=== PATIENT | male | born 1945 | race Caucasian/White ===

== ENCOUNTER 2022-04-10 16:11 | Outpatient (CLI) | payer MEDICARE | END 2022-04-10 16:12 | disposition home or self-care (01) | LOC: BICULT 16:11 | PROVIDERS: ATTEND Family Medicine | DX: N20.0 Calculus of kidney (principal) | CPT/HCPCS: 76770 ==

== ENCOUNTER 2022-07-15 09:56 | Outpatient (CLI) | payer MEDICARE ==
[2022-07-15 11:03] LABS: Bilirubin Neg (Negative); Blood, Urine 50 (Negative); Clarity Cloudy (Clear); Glucose, Urine (Dipstick) Normal (Negative); Ketone, Urine Negative (Negative); Leukocyte 100 (Negative); Nitrite Negative (Negative); Protein, Urine (Dipstick) 15 mg/dl (Neg-Trace); Urobilinogen Normal mg/dL (Less than 2)
[2022-07-15 11:07] LABS: Hemoglobin 14.3 g/dL (13.5-17.5); Mean Corpuscular HGB CONC 33.6 g/dL (32.0-36.0); Mean Corpuscular Hemoglobin 29.7 pg (27.0-33.0); Mean Corpuscular Volume 88.6 fl (81.2-95.1); Mean Platelet Volume 10.9 fl (7.4-10.4); Platelet Count 183 10x3/uL (150-450); RBC Distribution Width 14.6 % (11.5-14.5); Red Blood Cell (RBC) Count 4.81 10x6/uL (4.32-5.72); White Blood Cell (WBC) Count 7.2 10x3/uL (3.5-10.5)
[2022-07-15 11:29] LABS: Squamous Epithelial 0-3 HPF (0-3); WBC/HPF 21-50 HPF (0-3)
[2022-07-15 11:30] LABS: Bacteria/HPF 3+ HPF (None Seen)
[2022-07-15 11:31] LABS: Anion Gap 14 mmol/L (10-20); BUN (Urea Nitrogen) 24 mg/dL (8.4-25.7); Calc. Creatinine Clearance 0 mL/min (70-130); Calcium 11.2 mg/dL (7.8-10.44); Carbon Dioxide 27 mmol/L (23-31); Chloride 99 mmol/L (98-107); Estimated GFR 72; Glucose 150 mg/dL (83-110); Potassium 3.8 mmol/L (3.5-5.1); Sodium 136 mmol/L (136-145)
[2022-07-15 11:43] LABS: PTT 26.2 sec (22.0-33.0); Prothrombin Time 10.4 sec (9.5-12.1)
== END 2022-07-15 09:57 | disposition home or self-care (01) ==
LOC: LABBT 09:56
PROVIDERS: ATTEND Urology
DX: Z01.818 Encounter for other preprocedural examination (principal)
CPT/HCPCS: 80048; 81001; 85027; 85610; 85730; 87077; 87086; 93005; 93010

== ENCOUNTER 2022-07-28 05:54 | Observation (INO) | payer MEDICARE ==
[2022-07-24 09:40] VITALS: BMI 37.5
[2022-07-28] MEDS ORDERED: fentaNYL PF 100 MCG/2 ML SYRINGE ONE (07:02)
[2022-07-28] MEDS ORDERED: Iopamidol 30 ML ONE (07:08)
[2022-07-28] MEDS ORDERED: Levofloxacin 500 mg/D5W 100 ml Premix Bag ONE (07:16)
[2022-07-28] MEDS ORDERED: cefTRIAXone\\ROCEPHIN 2 GM VIAL ONE (07:29)
[2022-07-28] MEDS ORDERED: Sodium Chloride 0.9% 100 ML ONE (07:29)
[2022-07-28 07:33] LABS: SARS-CoV-2 NAA Rapid Test Not Detected (NotDetected)
[2022-07-28] MEDS ORDERED: PROPOFOL 200 MG/20 ML VIAL ONE (07:35)
[2022-07-28] MEDS ORDERED: Esmolol 100 MG/10 ML VIAL ONE (07:35)
[2022-07-28] MEDS ORDERED: ePHEDrine 50 MG/ML VIAL ONE (07:35)
[2022-07-28] MEDS ORDERED: Rocuronium Bromide 10 MG/ML (10ML VIAL) ONE (07:35)
[2022-07-28] MEDS ORDERED: Lidocaine 1% PF 5 ML VIAL ONE (07:35)
[2022-07-28] MEDS ORDERED: SUGAMMADEX SODIUM 200 MG/2 ML VIAL ONE (08:54)
[2022-07-28] MEDS ORDERED: Ondansetron HCl/PF 4 MG/2 ML Vial IVP PRN (10:24)
[2022-07-28] MEDS ORDERED: Promethazine HCl 25 MG/ML VIAL IM PRN (10:24)
[2022-07-28] MEDS ORDERED: Fentanyl 100 MCG/2 ML VIAL ONE ×3 (10:28→15:45)
[2022-07-28] MEDS ORDERED: Acetaminophen 500 MG TAB PO PRN (10:38)
[2022-07-28] MEDS ORDERED: Dextrose 5% in Water 1,000 ML IV PRN (10:38)
[2022-07-28] MEDS ORDERED: Phenazopyridine HCl 95 MG TAB PO PRN (10:38)
[2022-07-28] MEDS ORDERED: Mag-Al 1200 mg/1200 mg/30 ML UDCUP PO PRN (10:38)
[2022-07-28] MEDS ORDERED: HYDROcodone/Acetaminophen 7.5/325 mg Tablet PO PRN ×2 (10:38)
[2022-07-28] MEDS ORDERED: hydrALAZINE 20 MG/ML VIAL SLOW IVP PRN (10:38)
[2022-07-28] MEDS ORDERED: Morphine 2 MG/ML VIAL SLOW IVP PRN (10:38)
[2022-07-28] MEDS ORDERED: Dextrose 50% Abboject 50 ML SYRINGE SLOW IVP PRN (10:38)
[2022-07-28] MEDS ORDERED: Zolpidem Tartrate 5 MG TAB PO PRN (10:38)
[2022-07-28] MEDS: Sodium Chloride 0.9% 1,000 ML IV SCH (11:22)
[2022-07-28 11:27] LABS: #Basophils 0.1 thou/uL (0.0-0.2); #Eosinphils 0.1 thou/uL (0.0-0.7); #Lymphocytes 1.6 thou/uL (1.20-3.40); #Monocytes 0.5 thou/uL (0.11-0.59); #Neutrophils 3.6 thou/uL (1.40-6.50); %Basophils 1.6 % (0.0-1.0); %Eosinophils 1.3 % (0.0-10.0); %Lymphocytes 27.9 % (21.0-51.0); %Monocytes 8.2 % (0.0-10.0); %Neutrophils 61.1 % (42.0-75.0); Hemoglobin 14.1 g/dL (14.0-18.0); Mean Corpuscular HGB CONC 31.3 g/dL (32.0-36.0); Mean Corpuscular Volume 92.6 fl (78.0-98.0); Mean Platelet Volume 8.8 fL (7.4-10.4); Platelet Count 165 10x3/uL (130-400); RBC Distribution Width 13.5 % (11.5-14.5); Red Blood Cell (RBC) Count 4.88 mill/uL (4.70-6.10); White Blood Cell (WBC) Count 5.8 10x3/uL (4.8-10.8)
[2022-07-28 11:49] LABS: Anion Gap 14 mmol/L (10-20); BUN (Urea Nitrogen) 18 mg/dL (8.4-25.7); Calc. Creatinine Clearance 107 mL/min (70-130); Calcium 9.9 mg/dL (7.8-10.44); Carbon Dioxide 23 mmol/L (23-31); Chloride 102 mmol/L (98-107); Estimated GFR 84; Glucose 201 mg/dL (83-110); Potassium 3.8 mmol/L (3.5-5.1); Sodium 135 mmol/L (136-145)
[2022-07-28] MEDS ORDERED: hydrALAZINE 20 MG/ML VIAL ONE (16:02)
[2022-07-28] MEDS ORDERED: HYDROcodone/Acetaminophen 7.5/325 mg Tablet ONE ×2 (16:13)
[2022-07-28] MEDS ORDERED: Oxybutynin 5 MG TAB ONE ×2 (16:53)
[2022-07-28] MEDS ORDERED: Oxybutynin ER 5 MG TAB PO SCH (17:00)
[2022-07-28] MEDS ORDERED: Morphine 2 MG/ML VIAL ONE (17:02)
[2022-07-28] MEDS ORDERED: Hyoscyamine SL 0.125 MG TAB ONE (17:59)
[2022-07-28 18:10] LABS: Glucose 188 mg/dL (83-110)
[2022-07-28] MEDS ORDERED: Rosuvastatin 20 MG TAB PO SCH (21:00)
[2022-07-28] MEDS: Docusate 100 MG CAP PO SCH (21:47)
[2022-07-28] MEDS: Tamsulosin HCl 0.4 MG CAP PO SCH (21:47)
[2022-07-28] MEDS: Famotidine/PF 20 mg/2ml Vial SLOW IVP SCH (21:48)
[2022-07-28] MEDS: Trospium 20 MG TAB PO SCH (21:59)
[2022-07-28] MEDS: Insulin Regular 300 UNITS/3 ML VIAL SC PRN (22:00)
[2022-07-28] MEDS: metFORMIN 500 MG TAB PO SCH (23:11)
[2022-07-29] MEDS: Sodium Chloride 0.9% 1,000 ML IV SCH ×2 (00:34→14:29)
[2022-07-29 06:11] LABS: #Lymphocytes 1.2 thou/uL (1.20-3.40); #Monocytes 0.7 thou/uL (0.11-0.59); #Neutrophils 7.1 thou/uL (1.40-6.50); %Basophils 0.2 % (0.0-1.0); %Eosinophils 0.2 % (0.0-10.0); %Lymphocytes 13.4 % (21.0-51.0); %Monocytes 7.7 % (0.0-10.0); %Neutrophils 78.5 % (42.0-75.0); Mean Corpuscular HGB CONC 32.3 g/dL (32.0-36.0); Mean Corpuscular Hemoglobin 29.8 pg (27.0-31.0); Mean Corpuscular Volume 92.3 fl (78.0-98.0); Mean Platelet Volume 8.5 fL (7.4-10.4); Platelet Count 156 10x3/uL (130-400); RBC Distribution Width 13.5 % (11.5-14.5); Red Blood Cell (RBC) Count 4.01 mill/uL (4.70-6.10); White Blood Cell (WBC) Count 9.1 10x3/uL (4.8-10.8)
[2022-07-29 06:29] LABS: Anion Gap 12 mmol/L (10-20); BUN (Urea Nitrogen) 15 mg/dL (8.4-25.7); Calc. Creatinine Clearance 109 mL/min (70-130); Calcium 9.7 mg/dL (7.8-10.44); Carbon Dioxide 23 mmol/L (23-31); Chloride 104 mmol/L (98-107); Estimated GFR 86; Glucose 150 mg/dL (83-110); Potassium 4.1 mmol/L (3.5-5.1); Sodium 135 mmol/L (136-145)
[2022-07-29] MEDS ORDERED: cefTRIAXone\\ROCEPHIN 2 GM in Sodium Chloride 0.9% 100 ML IVPB SCH (08:00)
[2022-07-29] MEDS: Famotidine/PF 20 mg/2ml Vial SLOW IVP SCH (08:37)
[2022-07-29] MEDS: Docusate 100 MG CAP PO SCH (08:38)
[2022-07-29] MEDS: Tamsulosin HCl 0.4 MG CAP PO SCH (08:38)
[2022-07-29] MEDS: metFORMIN 500 MG TAB PO SCH ×2 (08:38→19:10)
[2022-07-29] MEDS ORDERED: Lisinopril/Hydrochlorothiazide 20/25 mg Tablet PO SCH (09:00)
[2022-07-29] MEDS ORDERED: Acyclovir 200 mg Capsule PO SCH (09:00)
[2022-07-29] MEDS ORDERED: Oxybutynin ER 5 MG TAB PO SCH (09:00)
[2022-07-29] MEDS ORDERED: Pioglitazone HCl 45 MG TAB PO SCH (09:00)
[2022-07-29] MEDS ORDERED: Dutasteride 0.5 MG CAP PO SCH (09:00)
[2022-07-29] MEDS ORDERED: Escitalopram Oxalate 10 mg Tablet PO SCH (09:00)
[2022-07-29] MEDS: Trospium 20 MG TAB PO SCH (11:56)
[2022-07-29] MEDS: Insulin Regular 300 UNITS/3 ML VIAL SC PRN (11:56)
[2022-07-29 17:55] VITALS: BP 130/72; TEMP 97.8
[2022-08-04] MEDS ORDERED: Semaglutide [Ozempic] 2 MG/0.75 ML Pen.Injctr SC SCH (09:00)
== END 2022-07-29 19:10 | disposition home or self-care (01) ==
LOC: SDC 05:54 → SJJU 18:35
PROVIDERS: ADMIT Urology; ATTEND Urology
PROC: 0VT08ZZ Resection of Prostate, Via Natural or Artificial Opening Endoscopic (ICD-10-PCS; principal; 2022-07-28)
DX: N40.1 Benign prostatic hyperplasia with lower urinary tract symptoms (principal); R39.14 Feeling of incomplete bladder emptying; N13.8 Other obstructive and reflux uropathy; I10 Essential (primary) hypertension; E78.5 Hyperlipidemia, unspecified; I45.10 Unspecified right bundle-branch block; G47.30 Sleep apnea, unspecified; F17.210 Nicotine dependence, cigarettes, uncomplicated; E66.01 Morbid (severe) obesity due to excess calories; Z68.37 Body mass index [BMI] 37.0-37.9, adult; Z79.84 Long term (current) use of oral hypoglycemic drugs; Z79.899 Other long term (current) drug therapy; Z91.030 Bee allergy status; Z91.038 Other insect allergy status; Z20.822 Contact with and (suspected) exposure to COVID-19
CPT/HCPCS: 52601; 74420; 80048 ×2; 82947; 82962 ×2; 85025 ×2; 86850; 86900; 86901; U0002; 36415; 36416; 88305; 96374; 96375; 96376; G0378; J0360; J0696; J1815; J1956; J2272; J2704; J3010; J3490; J7050; Q9967; S0028

== ENCOUNTER 2023-01-21 11:55 | Outpatient (CLI) | payer MEDICARE ==
[2023-01-21 13:11] LABS: Hemoglobin 12.9 g/dL (13.5-17.5); Mean Corpuscular HGB CONC 32.3 g/dL (32.0-36.0); Mean Corpuscular Hemoglobin 28.5 pg (27.0-33.0); Mean Corpuscular Volume 88.5 fl (81.2-95.1); Mean Platelet Volume 11.3 fl (7.4-10.4); Platelet Count 180 10x3/uL (150-450); RBC Distribution Width 14.8 % (11.5-14.5); Red Blood Cell (RBC) Count 4.52 10x6/uL (4.32-5.72); White Blood Cell (WBC) Count 7.2 10x3/uL (3.5-10.5)
[2023-01-21 13:31] LABS: Bilirubin Neg (Negative); Blood, Urine 25 (Negative); Clarity Slightly Cloudy (Clear); Glucose, Urine (Dipstick) Normal (Negative); Ketone, Urine Negative (Negative); Leukocyte 500 (Negative); Nitrite Negative (Negative); Protein, Urine (Dipstick) 30 mg/dl (Neg-Trace); Specific Gravity, Urine 1.015 (1.005-1.030)
[2023-01-21 13:38] LABS: PTT 26.5 sec (22.0-33.0); Prothrombin Time 10.7 sec (9.5-12.1)
[2023-01-21 13:43] LABS: WBC/HPF 21-50 HPF (0-3)
[2023-01-21 13:44] LABS: Bacteria/HPF 1+ HPF (None Seen); Mucous/LPF 1+ LPF (<2+); Squamous Epithelial 0-3 HPF (0-3)
[2023-01-21 13:47] LABS: Anion Gap 16 mmol/L (10-20); BUN (Urea Nitrogen) 17 mg/dL (8.4-25.7); Calc. Creatinine Clearance 0 mL/min (70-130); Calcium 9.5 mg/dL (7.8-10.44); Carbon Dioxide 28 mmol/L (23-31); Chloride 98 mmol/L (98-107); Estimated GFR 78; Glucose 195 mg/dL (83-110); Potassium 3.8 mmol/L (3.5-5.1); Sodium 138 mmol/L (136-145)
== END 2023-01-21 11:56 | disposition home or self-care (01) ==
LOC: LABBT 11:55
PROVIDERS: ATTEND Urology
DX: Z01.818 Encounter for other preprocedural examination (principal); N40.1 Benign prostatic hyperplasia with lower urinary tract symptoms; N20.0 Calculus of kidney; R33.8 Other retention of urine; R39.14 Feeling of incomplete bladder emptying; E83.52 Hypercalcemia; E11.9 Type 2 diabetes mellitus without complications; I10 Essential (primary) hypertension; R31.29 Other microscopic hematuria; R79.89 Other specified abnormal findings of blood chemistry; N32.3 Diverticulum of bladder; R97.20 Elevated prostate specific antigen [PSA]; Z87.898 Personal history of other specified conditions; Z98.890 Other specified postprocedural states
CPT/HCPCS: 80048; 81001; 85027; 85610; 85730; 87086; 93005; 93010

== ENCOUNTER 2023-02-04 06:59 | Observation (INO) | payer MEDICARE ==
[2023-02-04] MEDS ORDERED: LevoFLOXacin 500 mg/D5W 100 ML BAG ONE (07:47)
[2023-02-04] MEDS ORDERED: Iopamidol 0 ML ONE (10:53)
[2023-02-04] MEDS ORDERED: fentaNYL 50 mcg/mL 1 mL Vial ONE ×2 (10:58→13:00)
[2023-02-04] MEDS ORDERED: NEOSTIGMINE 3 MG/3 ML SYR 3 MG/3 ML SYRINGE ONE (11:13)
[2023-02-04] MEDS ORDERED: Ondansetron PF 4 MG/2 ML Vial ONE (11:13)
[2023-02-04] MEDS ORDERED: Lidocaine 1% PF 5 ML VIAL ONE (11:13)
[2023-02-04] MEDS ORDERED: Albuterol HFA (OR) 200 PUFF INH ONE (11:13)
[2023-02-04] MEDS ORDERED: Glycopyrrolate 0.2 MG/ML 5 ML SYRINGE ONE (11:13)
[2023-02-04] MEDS ORDERED: PROPOFOL 200 MG/20 ML VIAL ONE (11:13)
[2023-02-04] MEDS ORDERED: Dexamethasone 20 MG/5 ML VIAL ONE (11:13)
[2023-02-04] MEDS ORDERED: Rocuronium Bromide 10 MG/ML (10ML VIAL) ONE (11:13)
[2023-02-04] MEDS ORDERED: Promethazine HCl 25 MG/ML VIAL IM PRN (12:15)
[2023-02-04] MEDS ORDERED: HYDROmorphone 2 MG/ML VIAL SLOW IVP PRN (12:15)
[2023-02-04] MEDS ORDERED: Ondansetron HCl/PF 4 MG/2 ML Vial IVP PRN (12:15)
[2023-02-04] MEDS ORDERED: Morphine Sulfate 2 MG/ML SYRINGE SLOW IVP PRN (12:15)
[2023-02-04] MEDS ORDERED: PACU-Morphine 4MG/ML VIAL SLOW IVP PRN (12:15)
[2023-02-04] MEDS ORDERED: Dextrose 50% Abboject 50 ML SYRINGE SLOW IVP PRN (12:39)
[2023-02-04] MEDS ORDERED: hydrALAZINE 20 MG/ML VIAL SLOW IVP PRN (12:39)
[2023-02-04] MEDS ORDERED: HYDROcodone/Acetaminophen 5/325 mg Tablet PO PRN ×2 (12:39)
[2023-02-04] MEDS ORDERED: Ondansetron PF 4 MG/2 ML Vial IVP PRN (12:39)
[2023-02-04] MEDS ORDERED: Mag-Al 1200 mg/1200 mg/30 ML UDCUP PO PRN (12:39)
[2023-02-04] MEDS ORDERED: Phenazopyridine HCl 95 MG TAB PO PRN (12:39)
[2023-02-04] MEDS ORDERED: Morphine 2 MG/ML VIAL SLOW IVP PRN (12:39)
[2023-02-04] MEDS ORDERED: Morphine 4 MG/ML VIAL SLOW IVP PRN (12:39)
[2023-02-04] MEDS ORDERED: Docusate 100 MG CAP PO PRN (12:39)
[2023-02-04] MEDS ORDERED: diphenhydrAMINE 50 MG/ML VIAL IVP PRN (12:39)
[2023-02-04] MEDS ORDERED: Acetaminophen 500 MG TAB PO PRN (12:39)
[2023-02-04] MEDS ORDERED: Glucagon 1 MG/ML KIT IM PRN (12:39)
[2023-02-04] MEDS ORDERED: Dextrose 5% in Water 1,000 ML IV PRN (12:39)
[2023-02-04] MEDS ORDERED: Oxybutynin 5 MG TAB PO PRN (12:39)
[2023-02-04] MEDS ORDERED: cefTRIAXone\\ROCEPHIN 1 GM in Sodium Chloride 0.9% 100 ML IVPB SCH (13:00)
[2023-02-04 13:39] LABS: #Eosinphils 0.1 thou/uL (0.0-0.7); #Monocytes 0.3 thou/uL (0.11-0.59); #Neutrophils 5.4 thou/uL (1.40-6.50); %Basophils 0.6 % (0.0-1.0); %Eosinophils 0.7 % (0.0-10.0); %Lymphocytes 17.7 % (21.0-51.0); %Neutrophils 76.6 % (42.0-75.0); Hematocrit 38.4 % (42.0-52.0); Hemoglobin 12.4 g/dL (14.0-18.0); Mean Corpuscular HGB CONC 32.3 g/dL (32.0-36.0); Mean Corpuscular Hemoglobin 29.1 pg (27.0-31.0); Mean Corpuscular Volume 90.1 fl (78.0-98.0); Mean Platelet Volume 11.3 fL (7.4-10.4); Platelet Count 146 10x3/uL (130-400); Red Blood Cell (RBC) Count 4.26 mill/uL (4.70-6.10)
[2023-02-04 14:00] LABS: Anion Gap 12 mmol/L (10-20); BUN (Urea Nitrogen) 21 mg/dL (8.4-25.7); Calc. Creatinine Clearance 94 mL/min (70-130); Calcium 8.9 mg/dL (7.8-10.44); Carbon Dioxide 28 mmol/L (23-31); Chloride 100 mmol/L (98-107); Estimated GFR 76; Glucose 189 mg/dL (83-110); Potassium 3.5 mmol/L (3.5-5.1); Sodium 136 mmol/L (136-145)
[2023-02-04 14:22] VITALS: BMI 36.1
[2023-02-04] MEDS: Sodium Chloride 0.9% 1,000 ML IV SCH (15:10)
[2023-02-04] MEDS: Insulin Regular 300 UNITS/3 ML VIAL SC PRN ×2 (17:17→21:24)
[2023-02-04] MEDS: metFORMIN 500 MG TAB PO SCH (17:18)
[2023-02-04] MEDS: Famotidine/PF 20 mg/2ml Vial SLOW IVP SCH (20:20)
[2023-02-04] MEDS ORDERED: Rosuvastatin 20 MG TAB PO SCH (21:00)
[2023-02-05] MEDS: Sodium Chloride 0.9% 1,000 ML IV SCH ×2 (00:10→09:07)
[2023-02-05 05:51] LABS: #Monocytes 0.7 thou/uL (0.11-0.59); #Neutrophils 7.9 thou/uL (1.40-6.50); %Basophils 0.2 % (0.0-1.0); %Lymphocytes 16.2 % (21.0-51.0); %Monocytes 6.8 % (0.0-10.0); %Neutrophils 76.3 % (42.0-75.0); Hematocrit 38.2 % (42.0-52.0); Hemoglobin 12.1 g/dL (14.0-18.0); Mean Corpuscular HGB CONC 31.7 g/dL (32.0-36.0); Mean Corpuscular Hemoglobin 28.7 pg (27.0-31.0); Mean Corpuscular Volume 90.7 fl (78.0-98.0); Mean Platelet Volume 11.6 fL (7.4-10.4); Platelet Count 143 10x3/uL (130-400); RBC Distribution Width 14.7 % (11.5-14.5); Red Blood Cell (RBC) Count 4.21 mill/uL (4.70-6.10); White Blood Cell (WBC) Count 10.4 10x3/uL (4.8-10.8)
[2023-02-05 06:17] LABS: Anion Gap 12 mmol/L (10-20); BUN (Urea Nitrogen) 19 mg/dL (8.4-25.7); Calc. Creatinine Clearance 108 mL/min (70-130); Calcium 8.5 mg/dL (7.8-10.44); Carbon Dioxide 24 mmol/L (23-31); Chloride 101 mmol/L (98-107); Estimated GFR 88; Glucose 157 mg/dL (83-110); Potassium 3.6 mmol/L (3.5-5.1); Sodium 133 mmol/L (136-145)
[2023-02-05] MEDS ORDERED: Escitalopram Oxalate 10 mg Tablet PO SCH (09:00)
[2023-02-05] MEDS ORDERED: Pioglitazone HCl 45 MG TAB PO SCH (09:00)
[2023-02-05] MEDS ORDERED: Lisinopril/Hydrochlorothiazide 20/25 mg Tablet PO SCH (09:00)
[2023-02-05] MEDS ORDERED: Tamsulosin HCl 0.4 MG CAP PO SCH (09:00)
[2023-02-05] MEDS ORDERED: Acyclovir 200 mg Capsule PO SCH (09:00)
[2023-02-05] MEDS ORDERED: Dutasteride 0.5 MG CAP PO SCH (09:00)
[2023-02-05] MEDS: metFORMIN 500 MG TAB PO SCH (09:12)
[2023-02-05] MEDS: Famotidine/PF 20 mg/2ml Vial SLOW IVP SCH (09:12)
[2023-02-05 12:37] VITALS: BP 121/71; TEMP 98
[2023-02-11] MEDS ORDERED: Semaglutide [Ozempic] 2 MG/0.75 ML Pen.Injctr SC SCH (09:00)
== END 2023-02-05 12:04 | disposition home or self-care (01) ==
LOC: SDC 06:59 → SURG A 10:52
PROVIDERS: ADMIT Urology; ATTEND Urology
PROC: 0VB07ZZ Excision of Prostate, Via Natural or Artificial Opening (ICD-10-PCS; principal; 2023-02-04)
DX: N40.1 Benign prostatic hyperplasia with lower urinary tract symptoms (principal); R33.8 Other retention of urine; N21.1 Calculus in urethra; E83.52 Hypercalcemia; Z79.899 Other long term (current) drug therapy
CPT/HCPCS: 52601; 74018; 80048 ×2; 82962 ×2; 85025 ×2; 86850; 86900; 86901; A4311; J3010; 36415; 36416; 88305; 88311; J0696; J1100; J1815; J1956; J2405; J2704; J3490; J7050; Q9967; S0028

== ENCOUNTER 2023-06-09 08:30 | Outpatient (CLI) | payer MEDICARE | END 2023-06-09 08:31 | disposition home or self-care (01) | LOC: BICRAD 08:30 | PROVIDERS: ATTEND Urology | DX: N20.0 Calculus of kidney (principal); E83.52 Hypercalcemia; R79.89 Other specified abnormal findings of blood chemistry | CPT/HCPCS: 36415; 74018; 80048; 81001; 83970; 87086 ==

== ENCOUNTER 2023-07-29 09:07 | Outpatient (CLI) | payer MEDICARE ==
[2023-07-29 10:14] LABS: Hematocrit 40.3 % (38.8-50.0); Hemoglobin 13.1 g/dL (13.5-17.5); Mean Corpuscular HGB CONC 32.5 g/dL (32.0-36.0); Mean Corpuscular Hemoglobin 27.3 pg (27.0-33.0); Mean Corpuscular Volume 84.1 fl (81.2-95.1); Mean Platelet Volume 11.2 fl (7.4-10.4); Platelet Count 192 10x3/uL (150-450); RBC Distribution Width 15.5 % (11.5-14.5); Red Blood Cell (RBC) Count 4.79 10x6/uL (4.32-5.72); White Blood Cell (WBC) Count 7.2 10x3/uL (3.5-10.5)
[2023-07-29 10:39] LABS: INR-International Normal Ratio 0.9
[2023-07-29 10:43] LABS: Anion Gap 15 mmol/L (10-20); BUN (Urea Nitrogen) 30 mg/dL (8.4-25.7); Calc. Creatinine Clearance 0 mL/min (70-130); Calcium 8.5 mg/dL (7.8-10.44); Carbon Dioxide 27 mmol/L (23-31); Chloride 95 mmol/L (98-107); Estimated GFR 60; Potassium 3.8 mmol/L (3.5-5.1); Sodium 133 mmol/L (136-145)
[2023-07-29 10:52] LABS: Glucose 508 mg/dL (83-110)
[2023-07-29 10:53] LABS: Critical Call Chemistry @NUR.KF @1052
[2023-07-29 10:54] LABS: PTT 25.8 sec (22.0-33.0)
[2023-07-29 14:57] LABS: Bilirubin Neg (Negative); Blood, Urine 250 (Negative); Glucose, Urine (Dipstick) >=1000 mg/dL (Negative); Ketone, Urine Negative (Negative); Leukocyte Negative (Negative); Nitrite Negative (Negative); Protein, Urine (Dipstick) 30 mg/dl (Neg-Trace); Specific Gravity, Urine 1.015 (1.005-1.030); Urobilinogen Normal mg/dL (Less than 2)
[2023-07-29 15:01] LABS: Clarity Hazy (Clear)
[2023-07-29 15:06] LABS: Bacteria/HPF 1+ HPF (None Seen); RBC/HPF 21-50 HPF (0-3)
[2023-07-29 15:07] LABS: Mucous/LPF 2+ LPF (<2+)
== END 2023-07-29 09:08 | disposition home or self-care (01) ==
LOC: LABBT 09:07
PROVIDERS: ATTEND Urology
DX: Z01.812 Encounter for preprocedural laboratory examination (principal); N40.1 Benign prostatic hyperplasia with lower urinary tract symptoms; N20.0 Calculus of kidney; R39.14 Feeling of incomplete bladder emptying; E83.52 Hypercalcemia; E11.9 Type 2 diabetes mellitus without complications; I10 Essential (primary) hypertension; R31.29 Other microscopic hematuria; N32.3 Diverticulum of bladder; R97.20 Elevated prostate specific antigen [PSA]; R79.89 Other specified abnormal findings of blood chemistry; Z87.898 Personal history of other specified conditions; Z72.0 Tobacco use
CPT/HCPCS: 80048; 81001; 85027; 85610; 85730; 87086

== ENCOUNTER 2023-11-18 10:55 | Outpatient (CLI) | payer MEDICARE ==
[2023-11-18 12:13] LABS: Hematocrit 40.8 % (38.8-50.0); Hemoglobin 13.7 g/dL (13.5-17.5); Mean Corpuscular HGB CONC 33.6 g/dL (32.0-36.0); Mean Corpuscular Hemoglobin 28.9 pg (27.0-33.0); Mean Corpuscular Volume 86.1 fl (81.2-95.1); Mean Platelet Volume 10.9 fl (7.4-10.4); Platelet Count 184 10x3/uL (150-450); RBC Distribution Width 14.7 % (11.5-14.5); Red Blood Cell (RBC) Count 4.74 10x6/uL (4.32-5.72); White Blood Cell (WBC) Count 6.3 10x3/uL (3.5-10.5)
[2023-11-18 12:34] LABS: Bilirubin Neg (Negative); Blood, Urine 50 (Negative); Clarity Clear (Clear); Glucose, Urine (Dipstick) Normal (Negative); Ketone, Urine Negative (Negative); Leukocyte 25 (Negative); Nitrite Negative (Negative); Protein, Urine (Dipstick) 15 mg/dl (Neg-Trace); Urobilinogen Normal mg/dL (Less than 2)
[2023-11-18 12:36] LABS: PTT 26.4 sec (22.0-33.0); Prothrombin Time 10.9 sec (9.5-12.1)
[2023-11-18 12:45] LABS: Anion Gap 15 mmol/L (10-20); BUN (Urea Nitrogen) 16 mg/dL (8.4-25.7); Calc. Creatinine Clearance 0 mL/min (70-130); Calcium 9.4 mg/dL (7.8-10.44); Carbon Dioxide 27 mmol/L (23-31); Chloride 99 mmol/L (98-107); Estimated GFR 82; Glucose 182 mg/dL (83-110); Potassium 3.8 mmol/L (3.5-5.1); Sodium 137 mmol/L (136-145)
[2023-11-18 13:02] LABS: Bacteria/HPF 1+ HPF (None Seen); Squamous Epithelial 0-3 HPF (0-3)
[2023-11-18 13:04] LABS: Mucous/LPF 1+ LPF (<2+)
== END 2023-11-18 10:56 | disposition home or self-care (01) ==
LOC: LABBT 10:55
PROVIDERS: ATTEND Urology
DX: Z01.818 Encounter for other preprocedural examination (principal); N40.1 Benign prostatic hyperplasia with lower urinary tract symptoms; N20.0 Calculus of kidney; E83.52 Hypercalcemia; E11.9 Type 2 diabetes mellitus without complications; I10 Essential (primary) hypertension; N32.3 Diverticulum of bladder; R97.20 Elevated prostate specific antigen [PSA]; R31.29 Other microscopic hematuria; R33.8 Other retention of urine; R39.14 Feeling of incomplete bladder emptying; R79.89 Other specified abnormal findings of blood chemistry; Z90.79 Acquired absence of other genital organ(s); Z87.898 Personal history of other specified conditions; Z72.0 Tobacco use; Z98.890 Other specified postprocedural states
CPT/HCPCS: 80048; 81001; 85027; 85610; 85730; 87086; 93005; 93010

== ENCOUNTER 2023-12-02 06:48 | Day surgery (SDC) | payer MEDICARE ==
[2023-11-18 11:24] VITALS: BMI 37.0
[2023-12-02] MEDS ORDERED: Iopamidol 30 ML ONE (09:09)
[2023-12-02] MEDS ORDERED: LevoFLOXacin D5W 500 mg (100 mL) BAG ONE (09:35)
[2023-12-02] MEDS ORDERED: fentaNYL PF 100 MCG/2 ML SYRINGE ONE (10:11)
[2023-12-02] MEDS ORDERED: Ondansetron PF 4 MG/2 ML Vial ONE ×2 (10:11→12:52)
[2023-12-02] MEDS ORDERED: Dexamethasone 4 mg/ml Vial ONE (10:11)
[2023-12-02] MEDS ORDERED: Rocuronium Bromide 10 MG/ML (10ML VIAL) ONE (10:11)
[2023-12-02] MEDS ORDERED: PROPOFOL 20 ML ONE (10:11)
[2023-12-02] MEDS ORDERED: hydrALAZINE 20 MG/ML VIAL ONE (11:12)
[2023-12-02] MEDS ORDERED: SUGAMMADEX SODIUM 200 MG/2 ML VIAL ONE (11:42)
[2023-12-02] MEDS ORDERED: MINERAL OIL/WHITE PETROLATUM 3.5 GM TUBE ONE (11:50)
[2023-12-02] MEDS ORDERED: Phenazopyridine HCl 100 MG TAB ONE (12:52)
== END 2023-12-02 15:50 | disposition home or self-care (01) ==
LOC: SDC 06:48
PROVIDERS: ATTEND Urology
PROC: 0TF48ZZ Fragmentation in Left Kidney Pelvis, Via Natural or Artificial Opening Endoscopic (ICD-10-PCS; principal; 2023-12-02)
PROC: 0T778DZ Dilation of Left Ureter with Intraluminal Device, Via Natural or Artificial Opening Endoscopic (ICD-10-PCS; 2023-12-02)
DX: N20.0 Calculus of kidney (principal); E11.9 Type 2 diabetes mellitus without complications; I10 Essential (primary) hypertension; N40.1 Benign prostatic hyperplasia with lower urinary tract symptoms; R33.9 Retention of urine, unspecified; R39.14 Feeling of incomplete bladder emptying; E83.52 Hypercalcemia; E78.00 Pure hypercholesterolemia, unspecified; F17.210 Nicotine dependence, cigarettes, uncomplicated; E66.01 Morbid (severe) obesity due to excess calories; Z68.36 Body mass index [BMI] 36.0-36.9, adult; Z87.442 Personal history of urinary calculi; Z90.49 Acquired absence of other specified parts of digestive tract; Z79.85 Long-term (current) use of injectable non-insulin antidiabetic drugs; Z79.899 Other long term (current) drug therapy
CPT/HCPCS: 52356; 74018; 74420; C1747; C1769; C2617; J0360; J1100; J1956; J2405; J2704; Q9967

== ENCOUNTER 2023-12-03 07:08 | Outpatient (CLI) | payer MEDICARE | END 2023-12-03 07:09 | disposition home or self-care (01) | LOC: CT 07:08 | PROVIDERS: ATTEND Urology | DX: N20.0 Calculus of kidney (principal); N40.1 Benign prostatic hyperplasia with lower urinary tract symptoms; Z98.890 Other specified postprocedural states; R59.0 Localized enlarged lymph nodes; J98.11 Atelectasis; K76.89 Other specified diseases of liver; N28.1 Cyst of kidney, acquired; N32.89 Other specified disorders of bladder; N42.89 Other specified disorders of prostate; K57.30 Diverticulosis of large intestine without perforation or abscess without bleeding; K40.20 Bilateral inguinal hernia, without obstruction or gangrene, not specified as recurrent; M47.9 Spondylosis, unspecified; Z96.0 Presence of urogenital implants | CPT/HCPCS: 74176 ==

== ENCOUNTER 2023-12-14 08:42 | Outpatient (CLI) | payer MEDICARE ==
[2023-12-14 09:52] LABS: Hematocrit 38.7 % (38.8-50.0); Hemoglobin 13.2 g/dL (13.5-17.5); Mean Corpuscular HGB CONC 34.1 g/dL (32.0-36.0); Mean Corpuscular Volume 85.1 fL (81.2-95.1); Mean Platelet Volume 10.8 fL (7.4-10.4); Platelet Count 208 10x3/uL (150-450); RBC Distribution Width 14.2 % (11.5-14.5); Red Blood Cell (RBC) Count 4.55 10x6/uL (4.32-5.72); White Blood Cell (WBC) Count 6.7 10x3/uL (3.5-10.5)
[2023-12-14 09:56] LABS: Bilirubin Neg (Negative); Blood, Urine 150 (Negative); Glucose, Urine (Dipstick) Normal (Negative); Ketone, Urine Negative (Negative); Leukocyte 500 (Negative); Nitrite Negative (Negative); Protein, Urine (Dipstick) 100 mg/dl (Neg-Trace); Specific Gravity, Urine 1.015 (1.005-1.030)
[2023-12-14 10:00] LABS: Clarity Cloudy (Clear)
[2023-12-14 10:01] LABS: Bacteria/HPF Rare-Few HPF (None Seen); RBC/HPF Greater than 50 HPF (0-3); Renal Epithelial 0-3 HPF (None Seen)
[2023-12-14 10:03] LABS: PTT 25.9 sec (22.0-33.0); Prothrombin Time 10.7 sec (9.5-12.1)
[2023-12-14 10:04] LABS: Anion Gap 15 mmol/L (10-20); BUN (Urea Nitrogen) 27 mg/dL (8.4-25.7); Calc. Creatinine Clearance 0 mL/min (70-130); Calcium 9.5 mg/dL (7.8-10.44); Carbon Dioxide 29 mmol/L (23-31); Chloride 95 mmol/L (98-107); Estimated GFR 55; Glucose 220 mg/dL (83-110); Potassium 3.4 mmol/L (3.5-5.1); Sodium 136 mmol/L (136-145)
== END 2023-12-14 08:43 | disposition home or self-care (01) ==
LOC: LABBT 08:42
PROVIDERS: ATTEND Urology
DX: Z01.818 Encounter for other preprocedural examination (principal); N40.1 Benign prostatic hyperplasia with lower urinary tract symptoms; N32.3 Diverticulum of bladder; N20.0 Calculus of kidney; E83.52 Hypercalcemia; E11.9 Type 2 diabetes mellitus without complications; I10 Essential (primary) hypertension; R97.20 Elevated prostate specific antigen [PSA]; R39.14 Feeling of incomplete bladder emptying; R33.8 Other retention of urine; R31.29 Other microscopic hematuria; R79.89 Other specified abnormal findings of blood chemistry; Z90.79 Acquired absence of other genital organ(s); Z98.890 Other specified postprocedural states; Z87.898 Personal history of other specified conditions; Z72.0 Tobacco use
CPT/HCPCS: 80048; 81001; 85027; 85610; 85730; 87086; 93005; 93010

== ENCOUNTER 2023-12-21 06:17 | Day surgery (SDC) | payer MEDICARE ==
[2023-12-14 09:12] VITALS: BMI 34.5
== END 2023-12-21 12:38 | disposition home or self-care (01) ==
LOC: SDC 06:17
PROVIDERS: ATTEND Urology
PROC: 0TF78ZZ Fragmentation in Left Ureter, Via Natural or Artificial Opening Endoscopic (ICD-10-PCS; principal; 2023-12-21)
PROC: 0T778DZ Dilation of Left Ureter with Intraluminal Device, Via Natural or Artificial Opening Endoscopic (ICD-10-PCS; 2023-12-21)
DX: N20.0 Calculus of kidney (principal); N40.1 Benign prostatic hyperplasia with lower urinary tract symptoms; E66.01 Morbid (severe) obesity due to excess calories; E78.00 Pure hypercholesterolemia, unspecified; E11.9 Type 2 diabetes mellitus without complications; I10 Essential (primary) hypertension; G47.33 Obstructive sleep apnea (adult) (pediatric); N40.0 Benign prostatic hyperplasia without lower urinary tract symptoms; R97.20 Elevated prostate specific antigen [PSA]; Z98.49 Cataract extraction status, unspecified eye; Z98.890 Other specified postprocedural states; F17.210 Nicotine dependence, cigarettes, uncomplicated; Z68.34 Body mass index [BMI] 34.0-34.9, adult; Z79.01 Long term (current) use of anticoagulants; Z79.899 Other long term (current) drug therapy; Z79.85 Long-term (current) use of injectable non-insulin antidiabetic drugs
CPT/HCPCS: 52356; 74018; 74420; C1747; C1769; C2617; J0360; J0696; J1100; J2405; J2704; J3010; J3490; Q9967

== ENCOUNTER 2024-04-25 13:41 | Outpatient (CLI) | payer MEDICARE | END 2024-04-25 13:42 | disposition home or self-care (01) | LOC: BICULT 13:41 | PROVIDERS: ATTEND Urology | DX: N40.1 Benign prostatic hyperplasia with lower urinary tract symptoms (principal); N20.0 Calculus of kidney; R79.89 Other specified abnormal findings of blood chemistry; N28.1 Cyst of kidney, acquired; Z98.890 Other specified postprocedural states | CPT/HCPCS: 74018; 76770 ==